=== PATIENT | female | born 1980 | race Caucasian/White ===

== ENCOUNTER 2019-01-29 13:01 | Outpatient (CLI) | payer MEDICAID ==
--- NOTE | 2019-01-29 14:51 | ULT ---
RIGHT BREAST ULTRASOUND: Comparison: Mammogram 01-29-19 History: Palpable mass at 2 o'clock position of the right breast. Technique: Multiplanar grayscale and color doppler images were obtained in a right breast ultrasound. FINDINGS: At the 2 o'clock position of the right breast approximately 2 cm from the nipple there is a well circ umscribed anechoic cyst measuring 2.1 cm in greatest dimension. Other numerous smaller cysts are seen in the right breast. No suspicious mass or suspicious shadowing is seen. IMPRESSION: BIRADS category 2 - benign findings. Annual screening mammography is recommended at the age of 40. POS: [facility]
--- NOTE | 2019-01-29 14:58 | MMO ---
MAMMOGRAM FINDINGS: The breasts are heterogeneously dense, which could obscure a lesion on mammography. There are multiple round masses of varying size with circumscribed margins seen in both breasts. The mass was shown to be a cyst on ultrasound. There are no suspicious masses, calcifications or areas of architectural distortion. IMPRESSION: MASSES IN BOTH BREASTS ARE BENIGN. A ROUTINE FOLLOW-UP MAMMOGRAM AT AGE 42 IS RECOMMENDED. ACR BI-RADS Category 2 - Benign finding
== END 2019-01-29 13:02 | disposition home or self-care (01) ==
LOC: BICMAMMO 13:01
PROVIDERS: ATTEND Nurse Practitioner Women's Health
DX: N63.12 Unspecified lump in the right breast, upper inner quadrant (principal); N63.20 Unspecified lump in the left breast, unspecified quadrant
CPT/HCPCS: 77066; G0279

== ENCOUNTER 2021-08-12 13:07 | Outpatient (CLI) | payer MEDICAID | END 2021-08-12 13:08 | disposition home or self-care (01) | LOC: BICMAMMO 13:07 | PROVIDERS: ATTEND Obstetrics & Gynecology | DX: N63.20 Unspecified lump in the left breast, unspecified quadrant (principal) | CPT/HCPCS: 77066; G0279 ==

== ENCOUNTER 2023-08-30 08:03 | Outpatient (CLI) | payer MEDICAID | END 2023-08-30 08:04 | disposition home or self-care (01) | LOC: BICMAMMO 08:03 | PROVIDERS: ATTEND Obstetrics & Gynecology | DX: Z12.31 Encounter for screening mammogram for malignant neoplasm of breast (principal) | CPT/HCPCS: 77067 ==